=== PATIENT | male | born 1965 | race Caucasian/White ===

== ENCOUNTER 2022-03-24 12:10 | Emergency (ER) | payer SELFPAY ==
[~2022-03-24 12:10] MED LIST: Iopamidol-370 76% 500 ML 1 ML ONE
[2022-03-24] MEDS ORDERED: Morphine 4 MG/ML VIAL ONE (13:32)
[2022-03-24 14:35] LABS: #Basophils 0.1 thou/uL (0.0-0.2); #Lymphocytes 1.9 thou/uL (1.20-3.40); #Monocytes 0.7 thou/uL (0.11-0.59); #Neutrophils 6.4 thou/uL (1.40-6.50); %Basophils 0.5 % (0.0-1.0); %Eosinophils 10.2 % (0.0-10.0); %Lymphocytes 19.2 % (21.0-51.0); %Monocytes 7.3 % (0.0-10.0); %Neutrophils 62.8 % (42.0-75.0); Mean Corpuscular HGB CONC 33.1 g/dL (32.0-36.0); Mean Corpuscular Hemoglobin 31.1 pg (27.0-31.0); Mean Corpuscular Volume 93.9 fl (78.0-98.0); Mean Platelet Volume 7.1 fL (7.4-10.4); Platelet Count 314 10x3/uL (130-400); RBC Distribution Width 12.8 % (11.5-14.5); Red Blood Cell (RBC) Count 3.54 mill/uL (4.70-6.10); White Blood Cell (WBC) Count 10.1 10x3/uL (4.8-10.8)
[2022-03-24 14:39] LABS: ALT (SGPT) 88 U/L (8-55); AST (SGOT) 87 U/L (5-34); Albumin 3.5 g/dL (3.5-5.0); Alkaline Phosphatase 118 U/L (40-110); Anion Gap 9 mmol/L (10-20); BUN (Urea Nitrogen) 10 mg/dL (8.4-25.7); Bilirubin, Total 0.2 mg/dL (0.2-1.2); Calc. Creatinine Clearance 0 mL/min (70-130); Calcium 8.7 mg/dL (7.8-10.44); Carbon Dioxide 28 mmol/L (22-29); Chloride 101 mmol/L (98-107); Estimated GFR 109; Globulin 3.3 g/dL (2.4-3.5); Glucose 79 mg/dL (70-105); Potassium 3.9 mmol/L (3.5-5.1); Protein, Total 6.8 g/dL (6.0-8.3); Sodium 134 mmol/L (136-145)
== END 2022-03-24 16:57 | disposition home or self-care (01) ==
LOC: ERS 12:10
DX: R20.0 Anesthesia of skin (principal); D64.9 Anemia, unspecified; R74.01 Elevation of levels of liver transaminase levels; R53.1 Weakness; I10 Essential (primary) hypertension; F17.210 Nicotine dependence, cigarettes, uncomplicated
CPT/HCPCS: 36415; 70496; 70498; 70551; 72141; 80053; 85025; 96374; J2270; Q9967